=== PATIENT | female | born 1980 | race Caucasian/White ===

== ENCOUNTER 2017-03-25 21:53 | Emergency (ER) | payer BC, OTHER ==
[2017-03-25] MEDS ORDERED: HYDROCODONE/ACETAMINOPHEN 5/325MG TABLET ONE (22:39)
== END 2017-03-25 22:46 | disposition home or self-care (01) ==
LOC: ED 21:53
DX: K64.9 Unspecified hemorrhoids (principal); K62.89 Other specified diseases of anus and rectum